=== PATIENT | female | born 1940 | race Caucasian/White ===

== ENCOUNTER 2017-01-23 12:48 | Emergency (ER) | payer MEDICARE, BC ==
[2017-01-23 15:07] VITALS: BP 184/79
--- NOTE | 2017-01-23 17:50 | EDM.PDOC ---
ED HPI GENERAL MEDICAL PROBLEM - General Chief Complaint: Abdominal Pain Stated Complaint: LEFT HIP/BACK PAIN; LLQ ABD PAIN Time Seen by Provider: 01/23/17 14:43 Source of Information: Reports: Patient History Limitations: Reports: No Limitations - History of Present Illness INITIAL COMMENTS - FREE TEXT/NARRATIVE: This lady is here for the complaint of abdominal pain. It's been going on for about 3 weeks. She does have a history of diverticulosis and at one time she did have some diverticulitis. She's been doing a lot of power washing lately. She denies any vomiting or diarrhea but she has been constipated for the past few days. She also has a history of some lumbar disc disease. There is been no fever. She was talking with her daughter and her daughter thinks that maybe she needs a CT of her abdomen she also complains of some left hip pain that appears to be chronic waist line abdomen Pain Score (Numeric/FACES): 4 - Related Data Allergies Allergy/AdvReac Type Severity Reaction Status Date / Time bee venom protein (honey bee) Allergy Difficulty Verified 01/23/17 15:20 Breathing Penicillins Allergy Rash Verified 01/23/17 15:20 IV dye Allergy Cannot Uncoded 01/23/17 15:20 Remember Home Meds: Home Meds Albuterol Sulfate [Proair Hfa] 8.5 gm IH 01/23/17 [History] Clopidogrel Bisulfate [Clopidogrel] 75 mg PO DAILY 01/23/17 [History] Enalapril [Vasotec] 10 mg PO BID 01/23/17 [History] Fluticasone Furoate [Flonase Sensimist] 15.8 ml NS ASDIRECTED 01/23/17 [History] Hydrocortisone [Hydrocortisone 2.5% Crm] 30 gm .XX ASDIRECTED 01/23/17 [History] Ketoconazole [Nizoral 2% Crm] 1 applic TOP BID 01/23/17 [History] Metoprolol Tartrate [Metoprolol Tartrate] 50 mg PO BID 01/23/17 [History] Mupirocin [Mupirocin] 1 applic TOP TID 01/23/17 [History] Nystatin [Nystop] 1 applic TOP TID 01/23/17 [History] Ranitidine HCl [Ranitidine] 150 mg PO BEDTIME 01/23/17 [History] Triamterene/Hydrochlorothiazid [Triamterene-HCTZ 37.5-25 MG] 0.5 tab PO DAILY [History] amLODIPine [Norvasc] 5 mg PO DAILY 01/23/17 [History] atorvaSTATin [Lipitor] 10 mg PO BEDTIME 01/23/17 [History] metFORMIN HCl [Metformin HCl ER] 500 mg PO BID 01/23/17 [History] traMADol [Take Home: traMADol 50 MG, 4 Tab Pack] 1 tab PO Q6H 01/23/17 [History] Past Medical History Cardiovascular History: Reports: High Cholesterol Gastrointestinal History: Reports: Diverticulosis [employer] History: Reports: Musculoskeletal History: Reports: Arthritis Neurological History: Reports: TIA Endocrine/Metabolic History: Reports: Diabetes, Type II Oncologic (Cancer) History: Reports: Other (See Below) Other Oncologic History: skin Dermatologic History: Reports: Psoriasis - Infectious Disease History Infectious Disease History: Reports: Chicken Pox, Measles - Past Surgical History GI Surgical History: Reports: Appendectomy, Colonoscopy Social & Family History - Tobacco Use Smoking Status *Q: Former Smoker Used Tobacco, but Quit: Yes Month Tobacco Last Used: january - Caffeine Use Caffeine Use: Reports: Coffee - Recreational Drug Use Recreational Drug Use: No ED ROS GENERAL - Review of Systems Review Of Systems: See Below Constitutional: Reports: No Symptoms HEENT: Reports: No Symptoms Respiratory: Reports: No Symptoms Cardiovascular: Reports: No Symptoms Endocrine: Reports: No Symptoms GI/Abdominal: Reports: Abdominal Pain : Reports: No Symptoms Musculoskeletal: Reports: Back Pain, Other (Hip pain) Skin: Reports: No Symptoms Neurological: Reports: No Symptoms ED EXAM, GI/ABD - Physical Exam Exam: See Below Exam Limited By: No Limitations General Appearance: Alert, No Apparent Distress, Obese Eyes: Bilateral: Normal Appearance Throat/Mouth: Normal Oropharynx Respiratory/Chest: Lungs Clear Cardiovascular: Regular Rate, Rhythm, No Murmur GI/Abdominal: Soft, Other (There appears to be some stool mass on the left side of the abdomen with very scant tenderness. The rest of the abdomen is completely nontender bowel sounds are normal) Extremities: Normal Inspection, Increased Warmth Neurological: Alert, No Motor/Sensory Deficits Psychiatric: Normal Affect Skin Exam: Warm, Dry Course - Vital Signs Last Recorded V/S: Last Vital Signs Temp 35.8 C 01/23/17 15:34 Pulse 61 07/15/17 15:34 Resp 16 01/23/17 15:34 BP 184/79 H 01/23/17 15:34 Pulse Ox 97 01/23/17 15:34 - Orders/Labs/Meds Orders: Active Orders 24 hr Category Date Time Status Abdomen 1V Flat [CR] Stat Exams 01/23/17 17:06 Ordered UA W/MICROSCOPIC [URIN] Urgent Lab 01/23/17 17:06 Uncollected Labs: Laboratory Tests 01/23/17 01/23/17 Range/Units 17:05 17:05 WBC 7.2 (4.5-11.0) K/uL RBC 4.68 (3.30-5.50) M/uL Hgb 14.7 (12.0-15.0) g/dL Hct 43.6 (36.0-48.0) % MCV 93 (80-98) fL MCH 31 (27-31) pg MCHC 34 (32-36) % Plt Count 229 (150-400) K/uL Neut % (Auto) 64 (36-66) % Lymph % (Auto) 25 (24-44) % [place] % (Auto) 8 H (2-6) % Eos % (Auto) 2 (2-4) % Baso % (Auto) 1 (0-1) % Sodium 141 (140-148) mmol/L Potassium 3.7 (3.6-5.2) mmol/L Chloride 101 (100-108) mmol/L Carbon Dioxide 32 (21-32) mmol/L Anion Gap 8.5 (5.0-14.0) mmol/L BUN 21 H (7-18) mg/dL Creatinine 1.2 H (0.6-1.0) mg/dL Est Cr Clr Drug Dosing 34.24 mL/min Estimated GFR (MDRD) 44 L (>60) Glucose 100 (74-106) mg/dL Calcium 10.2 H (8.5-10.1) mg/dL Total Bilirubin 0.5 (0.2-1.0) mg/dL AST 14 L (15-37) U/L ALT 15 (12-78) U/L Alkaline Phosphatase 56 (46-116) U/L Total Protein 7.7 (6.4-8.2) g/dL Albumin 4.3 (3.4-5.0) g/dL Globulin 3.4 (2.3-3.5) g/dL Albumin/Globulin Ratio 1.3 (1.2-2.2) - Radiology Interpretation Free Text/Narrative:: Flat abdominal film shows nonspecific gas pattern but a large amount of stool in the descending colon Departure - Departure Time of Disposition: 18:01 Disposition: Home, Self-Care 01 Condition: Fair Clinical Impression: Abdominal pain - Discharge Information Referrals: PCP,None [Primary Care Provider] - Forms: ED Department Discharge Additional Instructions: Your abdominal pain appears to be due to constipation. There is nothing to suggest diverticulitis. Try using a laxative such as Ruba lax or milk of magnesia. This should keep you relief. Continue the fiber laxative you are already using. If you feel like you're getting worse however return to the emergency department for reevaluation. At the present time a CT scan of the abdomen would not be recommended. For the hip pain try using either tramadol or Vicodin at night. These pain medications can worsen constipation so use sparingly. If the pain continues to get worse you may need orthopedic evaluation - My Orders Last 24 Hours: My Active Orders 01/23/17 17:06 Abdomen 1V Flat [CR] Stat UA W/MICROSCOPIC [URIN] Urgent - Assessment/Plan Last 24 Hours: My Active Orders 01/23/17 17:06 Abdomen 1V Flat [CR] Stat UA W/MICROSCOPIC [URIN] Urgent
--- NOTE | 2017-01-25 09:23 | CR ---
Abdomen 1V Flat HISTORY: Pain COMPARISON: None FINDINGS: No fracture or diastases. SI joints symmetric. Right and left hip demonstrate very mild de generative change.
== END 2017-01-23 18:21 | disposition home or self-care (01) ==
LOC: JP.ED 12:48
DX: R10.9 Unspecified abdominal pain (principal); E78.00 Pure hypercholesterolemia, unspecified; M19.90 Unspecified osteoarthritis, unspecified site; E11.9 Type 2 diabetes mellitus without complications; L40.9 Psoriasis, unspecified; Z90.49 Acquired absence of other specified parts of digestive tract; Z87.891 Personal history of nicotine dependence; Z88.0 Allergy status to penicillin; Z91.041 Radiographic dye allergy status; Z91.030 Bee allergy status; Z79.899 Other long term (current) drug therapy; Z86.73 Personal history of transient ischemic attack (TIA), and cerebral infarction without residual deficits
CPT/HCPCS: 36415; 74000; 74000-26; 80053; 85025; 99283; 99284